=== PATIENT | male | born 1985 | race Two or more races ===

== ENCOUNTER 2019-01-25 18:44 | Emergency (ER) | payer SELFPAY ==
[2019-01-25 18:50] VITALS: BP 151/89; PULSE 80; TEMP 98; BMI 39.1
--- NOTE | 2019-01-25 19:38 | PDOC ---
History of Present Illness - General Chief Complaint: Wound Stated Complaint: HAND INJURY Time Seen by Provider: 01/25/19 19:26 - History of Present Illness Initial Comments: 01/25/19 19:35 33-year-old male presents to the emergency room for an evaluation of the wound. 12 days ago he sustained a right wrist laceration. The wrist laceration was closed primarily in an emergency room and the sutures were removed 7 days later. Since that time the wound has then opened up. Past History - Past Medical History Allergies/Adverse Reactions: Allergies Allergy/AdvReac Type Severity Reaction Status Date / Time No Known Allergies Allergy Verified 01/25/19 18:50 COPD: No - Psycho Social/Smoking Cessation Hx Smoking History: Never smoked Review of Systems - Review of Systems Constitutional: No: Fever *Physical Exam - Vital Signs Last Vital Signs Temp Pulse Resp BP Pulse Ox 98 F 80 18 151/89 99 01/25/19 18:46 01/25/19 18:46 01/25/19 18:46 01/25/19 18:46 01/25/19 18:46 - Physical Exam Comments: 01/25/19 19:36 There is about a 4 cm laceration on the ulnar aspect of the right wrist obliquely oriented. There is subcutaneous fat exposed. Normal surrounding skin color and temperature. No gross sensorimotor deficits. Medical Decision Making - Medical Decision Making 01/25/19 19:37 I had a long detailed discussion with the patient as well as his . We will treat this wound with wet-to-dry dressing changes and general surgery follow- up. Wet-to-dry dressing changes twice daily for at least the first 3 to 4 days with close wound care follow-up. They are in agreement with the plan. Antibiotics are not necessary at this time. Discharge - Discharge Information Problems reviewed: Yes Clinical Impression/Diagnosis: Encounter for wound care Condition: Stable Disposition: HOME - Admission No - Follow up/Referral Referrals: Bean Coleman MD [Staff Physician] - - Patient Discharge Instructions Additional Instructions: Continue with the wet-to-dry dressing changes twice daily. He may remove the dressing to shower and let Water run into the wound and wash it out. Without fail please follow-up with general surgery in 2 to 3 days for a wound check and further evaluation and treatment options. Return to the emergency room for any issues. - Post Discharge Activity
== END 2019-01-25 19:52 | disposition home or self-care (01) ==
LOC: JERFT 18:44
DX: Z48.817 Encounter for surgical aftercare following surgery on the skin and subcutaneous tissue (principal); Z48.01 Encounter for change or removal of surgical wound dressing
CPT/HCPCS: 99282-25